=== PATIENT | female | born 1995 | race Caucasian/White ===

== ENCOUNTER 2019-05-24 15:26 | Emergency (ER) | payer MEDICAID, OTHER ==
[~2019-05-24] VITALS: Ht 162.6 cm; Wt 68.0 kg
[2019-05-24 15:30] VITALS: BP 114/83
[2019-05-24] MEDS ORDERED: KETOROLAC 60MG/2ML VIAL IM ONE (17:45)
== END 2019-05-24 19:09 | disposition home or self-care (01) ==
LOC: ER 15:26
DX: S63.501A Unspecified sprain of right wrist, initial encounter (principal); V49.88XA Car occupant (driver) (passenger) injured in other specified transport accidents, initial encounter; Y93.89 Activity, other specified; Y92.89 Other specified places as the place of occurrence of the external cause; Y99.8 Other external cause status
CPT/HCPCS: 29125; 73110; 81025; 96372; 99283; J1885